=== PATIENT | male | born 1975 | race Caucasian/White ===

== ENCOUNTER 2016-03-30 22:20 | Emergency (ER) | payer BC ==
[~2016-03-30] VITALS: Ht 170.2 cm; Wt 83.9 kg
[2016-03-30] MEDS ORDERED: METOCLOPRAMIDE HCL 10 MG/2 ML VIAL ONE (23:19)
[2016-03-30] MEDS ORDERED: MORPHINE SULFATE INJ 4 MG/ML DISP.SYRIN ONE (23:20)
[2016-03-30] MEDS ORDERED: IV SET PRIMARY 1 EA INFUS.SET MC ONE (23:20)
[2016-03-30] MEDS ORDERED: IV NS 0.9% 1,000 ML ONE (23:20)
[2016-03-30] MEDS ORDERED: MORPHINE SULFATE INJ 2 MG/ML DISP.SYRIN IV ONE (23:30)
[2016-03-30] MEDS ORDERED: METOCLOPRAMIDE HCL 10 MG/2 ML VIAL IV ONE (23:30)
[2016-03-30] MEDS ORDERED: IV NS 0.9% 1,000 ML BAG IV ONE (23:30)
[2016-03-30 23:42] LABS: BASOPHILS % (AUTO) 0.3 % (0.0-2.0); DIFF TOTAL % 100 %; EOSINOPHILS # (AUTO) 0.2 /CMM (0.0-0.7); EOSINOPHILS % (AUTO) 2.2 % (0.0-6.0); HEMATOCRIT 48 % (39-51); HEMOGLOBIN 16.1 g/dL (13.5-17.5); LYMPHOCYTES % (AUTO) 30.9 % (20.0-44.0); MEAN CORPUSCULAR HEMOGLOBIN 30 PG (26.0-33.0); MEAN CORPUSCULAR HGB CONC 34 g/dl (31.0-36.0); MEAN CORPUSCULAR VOLUME 90 fL (80-96); MONOCYTES # (AUTO) 0.9 /CMM (0.1-1.30); MONOCYTES % (AUTO) 8.9 % (2.0-12.0); NEUTROPHILS # (AUTO) 5.6 /CMM (1.8-8.9); NEUTROPHILS % (AUTO) 57.7 % (43.0-81.0); PLATELET COUNT (AUTO) 165 /CMM (150-450); RED BLOOD CELL COUNT(AUTO) 5.34 MIL/uL (4.5-6.0); WHITE BLOOD COUNT (AUTO) 9.7 K/uL (4.3-11.0)
[2016-03-30 23:46] LABS: KETONES,URINE TRACE (NEGATIVE); LEUKOCYTE ESTERASE ,URINE NEGATIVE (NEGATIVE)
[2016-03-30 23:53] LABS: CALCIUM, SERUM 8.6 mg/dL (8.5-10.1); CREATININE 0.9 mg/dL (0.6-1.3); POTASSIUM 3.7 mmol/L (3.5-5.1)
[2016-03-30 23:56] LABS: INR 1.02 (0.87-1.13)
[2016-03-30 23:59] LABS: ALBUMIN 3.8 g/dL (3.4-5.0); BILIRUBIN,DIRECT 0.1 mg/dL (0.0-0.2); BILIRUBIN,TOTAL 0.6 mg/dL (0.2-1.0); INDIRECT BILIRUBIN 0.5 mg/dL (0.0-1.1); TOTAL PROTEIN, SERUM 7.1 g/dL (6.4-8.2)
[2016-03-31 00:01] LABS: LACTIC ACID 0.7 mmol/L (0.4-2.0)
[2016-03-31 00:12] LABS: ADD UA MICROSCOPIC YES
[2016-03-31 00:14] LABS: ADD URINE CULTURE NO; RBC,URINE NONE SEEN /HPF (0-2); WBC,URINE 0-2 /HPF (0-3)
[2016-03-31] MEDS ORDERED: IOHEXOL-300 100 ML VIAL IV ONE (00:17)
[2016-03-31] MEDS ORDERED: LIDOCAINE VISCOUS 2% UD 15 ML UDC ONE (01:20)
[2016-03-31] MEDS ORDERED: BELLADONNA ALK/PHENOBARB TAB 16.2 MG TABLET ONE (01:20)
[2016-03-31] MEDS ORDERED: FAMOTIDINE/PF INJ 20 MG/2 ML VIAL IV ONE ×2 (01:20→01:30)
[2016-03-31] MEDS ORDERED: MAG HYDROX/AL HYDROX/SIMETH 30 ML UDC ONE (01:20)
[2016-03-31] MEDS ORDERED: LIDOCAINE VISCOUS 2% UD 15 ML UDC MM STA (01:27)
[2016-03-31] MEDS ORDERED: MAG HYDROX/AL HYDROX/SIMETH 30 ML UDC PO ONE (01:30)
[2016-03-31] MEDS ORDERED: BELLADONNA ALK/PHENOBARB TAB 16.2 MG TABLET PO ONE (01:30)
[2016-03-31] MEDS ORDERED: LIDOCAINE VISCOUS 2% UD 15 ML UDC MM ONE (01:30)
[2016-03-31 01:56] VITALS: BP 132/81
== END 2016-03-31 01:58 | disposition home or self-care (01) ==
LOC: ER 22:28
DX: K29.70 Gastritis, unspecified, without bleeding (principal); Z90.49 Acquired absence of other specified parts of digestive tract; Z88.6 Allergy status to analgesic agent; Z88.8 Allergy status to other drugs, medicaments and biological substances
CPT/HCPCS: 36415; 71010; 74160; 80048; 80076; 81001; 83605; 83690; 85025; 85730; 96361; 96374; 96375; 99285; A4606; J2270; J2765; J3490; J7030; Q9967; 81000-TC; Z7610